=== PATIENT | female | born 1975 | race Caucasian/White ===

== ENCOUNTER → 2019-05-27 | Outpatient (CLI) | payer OTHER ==
[~2019-05-27] VITALS: Ht 157.5 cm; Wt 61.2 kg
[~2019-05-27] MED LIST: ADDERALL 20 MG20 MG PO; AZELASTINE137 MCG/0. NASAL; FLUTICASONE PRO16 GM NASAL; GABAPENTIN 100100 MG PO; NORTRIPTYLINE H10 M1 PO; PROGESTERONE100 MG PO; SYNTHROID50 MCG PO; VITAMIN D5000 UNIT PO
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
[2019-05-27 10:49] VITALS: BP 144/96
--- NOTE | 2019-05-27 11:43 | NUR ---
Pain Clinic Assessment: 1. History of Osteoarthritis: DDD? History of Rheumatoid Arthritis: 2. Height: 5 ft. 2 in. 157.5 cm. Weight: 135.0 lb. oz. 61.236 kg. Patient's BMI: 24.7 3. Vital Signs: BP: 144/96 Pulse: 92 Resp: 14 Temp: 02 Sat: 100 ECG Mon: 4. Pain Intensity: 8 5. Fall Risk: Dizziness: Y Needs help standing or walking: N Fallen in the last 3 months: N Fall risk comments: 6. Patient on Blood Thinner: None 7. History of Hypertension: N 8. Opioid Therapy greater than 6 weeks: N Opiate Contract Signed: 9. Risk Assessment Tool Provided: 10. Functional Assessment Tool: 11. Recreational Drug Use: Unknown Drug Type: Tobacco Use: Never Smoker Tobacco Type: Amount or Packs/day: How Many Years: Alcohol Use: Yes Frequency: Daily Quant: 4 DRINKS A DAY
== END ==
LOC: PAIN 06:44
DX: M47.812 Spondylosis without myelopathy or radiculopathy, cervical region (principal); M50.322 Other cervical disc degeneration at C5-C6 level; G44.209 Tension-type headache, unspecified, not intractable; M79.18 Myalgia, other site; Z79.899 Other long term (current) drug therapy

== ENCOUNTER → 2019-07-19 | Outpatient (CLI) | payer OTHER ==
[~2019-07-19] VITALS: Ht 157.5 cm; Wt 62.7 kg
[~2019-07-19] MED LIST changes: +HYDROCODON-ACE1 EAC7 PO; +TRAMADOL 50 MG50 MG PO
[2019-07-19 14:21] VITALS: BP 155/99
--- NOTE | 2019-07-19 14:40 | NUR ---
Pain Clinic Assessment: 1. History of Osteoarthritis: Not Applicable History of Rheumatoid Arthritis: Not Applicable 2. Height: 5 ft. 2 in. 157.5 cm. Weight: 138.2 lb. oz. 62.687 kg. Patient's BMI: 25.3 3. Vital Signs: BP: 155/99 Pulse: 90 Resp: 14 Temp: 02 Sat: 100 ECG Mon: 4. Pain Intensity: 6-7 5. Fall Risk: Dizziness: N Needs help standing or walking: N Fallen in the last 3 months: N Fall risk comments: 6. Patient on Blood Thinner: None 7. History of Hypertension: N 8. Opioid Therapy greater than 6 weeks: N Opiate Contract Signed: 9. Risk Assessment Tool Provided: LOW RISK 2/3 10. Functional Assessment Tool: 11. Recreational Drug Use: Never Drug Type: Tobacco Use: Never Smoker Tobacco Type: Amount or Packs/day: How Many Years: Alcohol Use: Yes Frequency: Daily Quant: 4
--- NOTE | 2019-08-05 16:52 | HPC ---
[facility] [address] [place] [address] PAIN MANAGEMENT CONSULTATION Name: THAD LUNDBERG Room #: REG JOE ..#: [id number] Admission: 07/19/19 Attend Phys: Juancho Cr MD Discharge: Date of : 75 Report #: [id number] THIS REPORT FOR: //name// CC: [facility] physician/PCP CARLOS Garcia DATE OF SERVICE: 07/19/2019 Followup visit for chronic cervicalgia with occipital headaches. The patient returns to pain clinic today in followup. She has intractable cervicalgia with occipital headaches. She has been extensively treated with interventional techniques by Dr. Tremaine Murillo, but pain persists. She has undergone a number of additional treatments including massage and chiropractic. All the massage was helpful, it is only temporary. She has not had acupuncture or Botox, but both have been considered. She has tried a number of different medications including several nonsteroidal anti-inflammatory drugs. She was given a trial of tricyclic antidepressant for occipital headaches, but poorly tolerated them due to side effects. She has used muscle relaxants, but finds them to be quite troublesome due to side effects. PHYSICAL EXAMINATION: GENERAL: She is a pleasant 44-year-old female. Blood pressure 155/99, heart rate 90, respirations 14, O2 sat 100. She has tenderness below the occiput. She has pain with internal and external rotation. Pain radiates into the occiput primarily on the right. MRI scan shows significant degenerative disk disease at C5, C6, C7. There is offset at this level, deviation of the canal. No significant stenosis, but there is [id number] central canal stenosis. Facet arthropathy is noted at the affected levels. IMPRESSION: 1. Chronic cervicalgia related to marked degenerative disk disease and spondylosis of the cervical spine. 2. Failure of injection treatment and multiple nonopioid medications. PLAN: I had a 25-minute discussion with the patient today about cautious use of a mild opioid medication to help when the pain is severe. We would use this on a p.r.n. basis, not on a schedule. We discussed tolerance. Long-term use and dependence and other potential risks and side effects. [facility] [address] [place] [address] PAIN MANAGEMENT CONSULTATION Name: THAD LUNDBERG Room #: REG JOE Avalos.#: [id number] Admission: 07/19/19 Attend Phys: Juancho Cr MD Discharge: Date of : 75 Report #: [id number] I shared with her experience from our clinic in treating patients successfully over decades when medications are kept at modest levels and carefully monitored by the clinic. We discussed "the four A's," analgesia, activities, adverse side effects, and aberrant behaviors. We discussed the opioid crisis in the [place] and addiction. I talked about the importance of safeguarding medications. I have offered 2 options for trial, one would be hydrocodone 5 mg/325 b.i.d. p.r.n. or tramadol 50 mg. I have given her 30 tablets of each and she will assess over the course of the next 30 days. I plan to follow up by phone or back in the clinic to discuss her trial period. She is to evaluate for onset of analgesia duration, side effects and proper dose. <ELECTRONICALLY SIGNED> By: Juancho Cr MD 08/05/19 [id number] [id number] Juancho Cr MD /nt
== END ==
LOC: PAIN 07-15 06:52
DX: M50.322 Other cervical disc degeneration at C5-C6 level (principal); M47.812 Spondylosis without myelopathy or radiculopathy, cervical region; M54.81 Occipital neuralgia; G89.4 Chronic pain syndrome; Z79.891 Long term (current) use of opiate analgesic; Z79.899 Other long term (current) drug therapy

== ENCOUNTER → 2019-08-16 | Outpatient (CLI) | payer OTHER ==
[~2019-08-16] VITALS: Ht 160 cm; Wt 64.0 kg
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
[2019-08-16 12:37] VITALS: BP 128/89
--- NOTE | 2019-08-16 12:44 | NUR ---
Pain Clinic Assessment: 1. History of Osteoarthritis: Not Applicable History of Rheumatoid Arthritis: Not Applicable 2. Height: 5 ft. 3 in. 160.0 cm. Weight: 141.0 lb. oz. 63.957 kg. Patient's BMI: 25.0 3. Vital Signs: BP: 128/89 Pulse: 89 Resp: 14 Temp: 02 Sat: 100 ECG Mon: 4. Pain Intensity: 4-5-NOW 5. Fall Risk: Dizziness: N Needs help standing or walking: N Fallen in the last 3 months: N Fall risk comments: 6. Patient on Blood Thinner: None 7. History of Hypertension: N 8. Opioid Therapy greater than 6 weeks: N Opiate Contract Signed: 9. Risk Assessment Tool Provided: LOW RISK / 10. Functional Assessment Tool: 11. Recreational Drug Use: Never Drug Type: Tobacco Use: Never Smoker Tobacco Type: Amount or Packs/day: How Many Years: Alcohol Use: Yes Frequency: Quant:
== END ==
LOC: PAIN 06:48
DX: M47.812 Spondylosis without myelopathy or radiculopathy, cervical region (principal); M50.30 Other cervical disc degeneration, unspecified cervical region; Z79.899 Other long term (current) drug therapy; Z79.891 Long term (current) use of opiate analgesic

== ENCOUNTER → 2021-08-23 | Outpatient (CLI) | payer OTHER ==
[~2021-08-23] VITALS: Ht 160 cm; Wt 64.9 kg
[2021-08-23 11:38] VITALS: BP 135/95
== END ==
LOC: PAIN 11:15
PROVIDERS: ATTEND Anesthesiology Pain Medicine
DX: M54.12 Radiculopathy, cervical region (principal); G44.89 Other headache syndrome; Z79.899 Other long term (current) drug therapy

== ENCOUNTER → 2021-10-11 | Outpatient (CLI) | payer OTHER ==
[~2021-10-11] VITALS: Ht 160 cm; Wt 64.7 kg
[2021-10-11 10:48] VITALS: BP 144/86
--- NOTE | 2021-10-11 10:55 | NUR ---
Pain Clinic Assessment: 1. History of Osteoarthritis: Not Applicable History of Rheumatoid Arthritis: Not Applicable 2. Height: 5 ft. 3 in. 160.0 cm. Weight: 142.6 lb. oz. 64.683 kg. Patient's BMI: 25.3 3. Vital Signs: BP: 144/86 Pulse: 115 Resp: 14 Temp: 02 Sat: 100 ECG Mon: 4. Pain Intensity: 6 5. Fall Risk: Dizziness: N Needs help standing or walking: N Fallen in the last 3 months: N Fall risk comments: 6. Patient on Blood Thinner: None 7. History of Hypertension: N 8. Opioid Therapy greater than 6 weeks: N Opiate Contract Signed: 9. Risk Assessment Tool Provided: LOW RISK 2 10. Functional Assessment Tool: 11. Recreational Drug Use: Never Drug Type: Tobacco Use: Never Smoker Tobacco Type: Amount or Packs/day: How Many Years: Alcohol Use: Yes Frequency: Quant:
== END ==
LOC: PAIN 10:07
PROVIDERS: ATTEND Anesthesiology Pain Medicine
DX: M47.812 Spondylosis without myelopathy or radiculopathy, cervical region (principal); M48.02 Spinal stenosis, cervical region; E04.1 Nontoxic single thyroid nodule; R51.9 Headache, unspecified; M43.12 Spondylolisthesis, cervical region; Z79.899 Other long term (current) drug therapy

== ENCOUNTER → 2021-12-20 | Outpatient (CLI) | payer OTHER ==
[~2021-12-20] VITALS: Ht 160 cm; Wt 65.2 kg
[~2021-12-20] MED LIST changes: +ALEVE220 MG PO
[2021-12-20 10:59] VITALS: BP 132/61
--- NOTE | 2021-12-20 11:16 | NUR ---
Pain Clinic Assessment: 1. History of Osteoarthritis: Not Applicable History of Rheumatoid Arthritis: Not Applicable 2. Height: 5 ft. 3 in. 160.0 cm. Weight: 143.8 lb. oz. 65.227 kg. Patient's BMI: 25.5 3. Vital Signs: BP: 132/61 Pulse: 107 Resp: 14 Temp: 02 Sat: 100 ECG Mon: 4. Pain Intensity: 3-4 5. Fall Risk: Dizziness: N Needs help standing or walking: N Fallen in the last 3 months: N Fall risk comments: 6. Patient on Blood Thinner: None 7. History of Hypertension: N 8. Opioid Therapy greater than 6 weeks: N Opiate Contract Signed: 9. Risk Assessment Tool Provided: LOW RISK 2 10. Functional Assessment Tool: 11. Recreational Drug Use: Never Drug Type: Tobacco Use: Never Smoker Tobacco Type: Amount or Packs/day: How Many Years: Alcohol Use: Yes Frequency: Quant:
== END ==
LOC: PAIN 10:07
PROVIDERS: ATTEND Anesthesiology Pain Medicine
DX: M47.812 Spondylosis without myelopathy or radiculopathy, cervical region (principal); M48.02 Spinal stenosis, cervical region; R51.9 Headache, unspecified; Z79.899 Other long term (current) drug therapy